=== PATIENT | male | born 1970 | race Caucasian/White ===

== ENCOUNTER 2018-11-17 03:38 | Emergency (ER) | payer SELFPAY ==
[2018-11-17] MEDS ORDERED: Metoclopramide IV* 5 MG/ML 2 ML VIAL IV SLOW PU ONE (04:18)
[2018-11-17] MEDS ORDERED: Ketorolac INJ* 30 MG/ML 1 ML VIAL IV PUSH ONE (04:18)
[2018-11-17] MEDS ORDERED: NS 0.9% 1000 ML** 1,000 ML IV ONE (04:18)
[2018-11-17 05:45] LABS: ABS Basophils 0.2 10^3/ul (0-0.2); ABS Eosinophils 0.3 10^3/ul (0-0.6); ABS Lymphocytes 1.3 10^3/ul (1.0-4.8); ABS Monocytes 1.1 10^3/ul (0-0.8); Eosinophil % 1.7 %; Hematocrit 39 % (42-52); Hemoglobin 13.4 g/dL (14.0-18.0); Lymphocyte % 8.7 %; Mean Corpuscular HGB Conc 35 g/dL (31-36); Mean Corpuscular Hemoglobin 31 pg (27-31); Mean Corpuscular Volume 90 fL (80-94); Mean Platelet Volume 10.5 fL (7.4-10.4); Nucleated Red Blood Cells % 0.1; Platelet Count 116 10^3/uL (150-450); Red Blood Count 4.31 10^6 /uL (4.18-5.48); Red Cell Distribution Width 15 % (10-15); White Blood Count 14.9 10^3/uL (3.5-10.8)
[2018-11-17 06:17] LABS: ALT 15 U/L (7-52); AST 15 U/L (13-39); Albumin 3.8 g/dL (3.2-5.2); Albumin/Globulin Ratio 1.6 (1-3); Alkaline Phosphatase 82 U/L (34-104); BUN/Creatinine Ratio 17.1 (8-20); Blood Urea Nitrogen 12 mg/dL (6-24); CO2 Carbon Dioxide 22 mmol/L (22-32); Calcium 8.9 mg/dL (8.6-10.3); EGFR Non-African American 119.9 (>60); Globulin 2.4 g/dL (2-4); Glucose 107 mg/dL (70-100); Magnesium 1.9 mg/dL (1.9-2.7); Potassium 3.7 mmol/L (3.5-5.0); Sodium 139 mmol/L (135-145); Total Protein 6.2 g/dL (6.4-8.9)
[2018-11-17 06:24] LABS: Anion Gap 5 mmol/L (2-11); Chloride 112 mmol/L (101-111)
[2018-11-17 06:29] LABS: Alcohol < 10 mg/dL (<10)
[2018-11-17 07:15] VITALS: BP 102/64
--- NOTE | 2018-11-17 08:16 | ED ---
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 He was working on a carpet and stood up suddenly, felt unsteady and dizzy, and fell down to the ground. He mentions drinking four beers four hours COLLAR BASTER JUMPBASTING. He reports headache, dizziness, and currently being in pain rated 8/10 in severity. He also notes a previous injury in his left shoulder and neck and suggests that his fall may have aggravated it, but denies hitting his head or any LOC. He takes medication for hypotension and headache at home. He is a heavy smoker and has Hx of EtOH abuse, back problems, and cocaine abuse. - History Of Current Complaint Chief Complaint: EDDizziness Stated Complaint: DIZZY PER EMS Time Seen by Provider: 11/17/18 04:06 Hx Obtained From: Patient Onset/Duration: Still Present Timing: Constant Severity Initially: Severe - 8/10 Severity Currently: Severe - 8/10 Character: Dizzy Associated Signs And Symptoms: Positive: Unsteady Gait, Other: - Positive - Headache, left shoulder and neck pain - Allergies/Home Medications Allergies/Adverse Reactions: Allergies Allergy/AdvReac Type Severity Reaction Status Date / Time No Known Allergies Allergy Verified 11/17/18 04:06 Home Medications: Home Medications Fludrocortisone Acetate TAB* 0.1 mg PO DAILY 11/17/18 [History Confirmed ] PMH/Surg Hx/FS Hx/Imm Hx Endocrine/Hematology History: Denies: Hx Diabetes Cardiovascular History: Denies: Hx Hypertension, Hx Pacemaker/ICD Musculoskeletal History: Reports: Hx Back Problems Sensory History: Denies: Hx Hearing Aid Psychiatric History: Reports: Other Psychiatric Issues/Disorders - recovering alcoholic Denies: Hx Panic Disorder - Surgical History Surgery Procedure, Year, and Place: EAR TUBES A CHILD. HERNIA A CHILD. 03/12 RT SHOULDER ARTHROSCOPIC DECOMPRESSION Infectious Disease History: No Infectious Disease History: Denies: Traveled Outside the [place] in Last 30 Days - Family History Known Family History: Negative: Cardiac Disease, Hypertension, Diabetes - Social History Alcohol Use: Daily Alcohol Amount: Pt reports having had beer COLLAR BASTER JUMPBASTING Substance Use Type: Reports: Cocaine Substance Use Comment - Amount & Last Used: used this date Smoking Status (MU): Heavy Every Day Tobacco Smoker Type: Cigarettes Amount Used/How Often: 1 PPD Have You Smoked in the Last Year: Yes Review of Systems Musculoskeletal: Other - positive - left shoulder and left neck Neurological: Other - Positive - Dizziness, Unsteadiness, Light-headedness Positive: Headache All Other Systems Reviewed And Are Negative: Yes Physical Exam - Summary Physical Exam Summary: VITAL SIGNS: Reviewed. GENERAL: Patient is a well-developed and nourished male who is lying comfortable in the stretcher. Patient is not in any acute respiratory distress. Alcohol odor detectable in breath. HEAD AND FACE: No signs of trauma. No ecchymosis, hematomas or skull depressions. No sinus tenderness. EYES: PERRLA, EOMI x 2, No injected conjunctiva, no nystagmus. EARS: Hearing grossly intact. Ear canals and tympanic membranes are within normal limits. MOUTH: Oropharynx within normal limits. NECK: Supple, trachea is midline, no adenopathy, no JVD, no carotid bruit, no c- spine tenderness, neck with full ROM CHEST: Symmetric, no tenderness at palpation LUNGS: Clear to auscultation bilaterally. No wheezing or crackles. CVS: Regular rate and rhythm, S1 and S2 present, no murmurs or gallops appreciated. ABDOMEN: Soft, non-tender. No signs of distention. No rebound no guarding, and no masses palpated. Bowel sounds are normal. EXTREMITIES: FROM in all major joints, no edema, no cyanosis or clubbing. NEURO: Alert and oriented x 3. No acute neurological deficits. Speech is normal and follows commands. SKIN: Dry and warm Triage Information Reviewed: Yes Vital Signs On Initial Exam: Initial Vitals Temp Pulse Resp BP Pulse Ox 99.0 F 100 16 130/80 97 11/17/18 03:45 11/17/18 03:45 11/17/18 03:45 11/17/18 03:45 11/17/18 03:45 Vital Signs Reviewed: Yes Diagnostics - Vital Signs Vital Signs Temp Pulse Resp BP Pulse Ox 11/17/18 07:00 98.4 F 85 16 102/64 96 11/17/18 06:58 83/59 11/17/18 06:57 84 86/57 96 11/17/18 06:56 83 89/54 96 11/17/18 06:31 12 116/73 11/17/18 06:01 13 123/65 11/17/18 06:00 13 11/17/18 05:31 99 13 125/76 95 11/17/18 05:01 102 13 122/77 100 11/17/18 04:31 99 16 129/78 94 11/17/18 04:02 100 18 132/78 96 11/17/18 04:01 101 18 96 11/17/18 03:45 99.0 F 100 16 130/80 97 - Laboratory Lab Results: Lab Results 11/17/18 11/17/18 Range/Units 05:28 05:28 WBC 14.9 H (3.5-10.8) 10^3/uL RBC 4.31 (4.18-5.48) 10^6 /uL Hgb 13.4 L (14.0-18.0) g/dL Hct 39 L (42-52) % MCV 90 (80-94) fL MCH 31 (27-31) pg MCHC 35 (31-36) g/dL RDW 15 (10-15) % Plt Count 116 L (150-450) 10^3/uL MPV 10.5 H (7.4-10.4) fL Neut % (Auto) 80.7 % Lymph % (Auto) 8.7 % [place] % (Auto) 7.7 % Eos % (Auto) 1.7 % Baso % (Auto) 1.2 % Absolute Neuts (auto) 12.0 H (1.5-7.7) 10^3/ul Absolute Lymphs (auto) 1.3 (1.0-4.8) 10^3/ul Absolute Monos (auto) 1.1 H (0-0.8) 10^3/ul Absolute Eos (auto) 0.3 (0-0.6) 10^3/ul Absolute Basos (auto) 0.2 (0-0.2) 10^3/ul Absolute Nucleated RBC 0.0 10^3/ul Nucleated RBC % 0.1 Sodium 139 (135-145) mmol/L Potassium 3.7 (3.5-5.0) mmol/L Chloride 112 H (101-111) mmol/L Carbon Dioxide 22 (22-32) mmol/L Anion Gap 5 (2-11) mmol/L BUN 12 (6-24) mg/dL Creatinine 0.70 (0.67-1.17) mg/dL Est GFR ( Amer) 145.0 (>60) Est GFR (Non-Af Amer) 119.9 (>60) BUN/Creatinine Ratio 17.1 (8-20) Glucose 107 H (70-100) mg/dL Calcium 8.9 (8.6-10.3) mg/dL Magnesium 1.9 (1.9-2.7) mg/dL Total Bilirubin 0.60 (0.2-1.0) mg/dL AST 15 (13-39) U/L ALT 15 (7-52) U/L Alkaline Phosphatase 82 (34-104) U/L Total Protein 6.2 L (6.4-8.9) g/dL Albumin 3.8 (3.2-5.2) g/dL Globulin 2.4 (2-4) g/dL Albumin/Globulin Ratio 1.6 (1-3) Serum Alcohol < 10 (<10) mg/dL Result Diagrams: 11/17/18 05:28 11/17/18 05:28 Lab Statement: Any lab studies that have been ordered have been reviewed, and results considered in the medical decision making process. - Radiology CXR Radiology Interpretation Completed By: ED Physician Summary of Radiographic Findings: No acute processes, pendign official report. - EKG EKG Cardiac Rate: NL - @ 99 BPM EKG Rhythm: Sinus Rhythm ST Segment: Normal Dizzy Course/Dx - Course Course Of Treatment: The pt is 48 year old male presenting to [facility] c/o dizziness, lightheadedness for the past 2 days, and for falling down 2 hours COLLAR BASTER JUMPBASTING. He reports headache, dizziness, and currently being in pain rated 8/10 in severity. He also notes a previous injury in his shoulder and neck and suggests that his fall may have aggravated it, but denies hitting his head or any LOC. He takes medication for hypotension and headache at home. He is a heavy smoker and has Hx of EtOH abuse recovery, back problems, and cocaine abuse. An EKG reveals normal sinus rhythm @ 99 BPM and normal axis. CXR reveals no acute processes. Test results with no significant abnormalities except for WBC @ 14.9 , Hgb @ 13.4, Hct @ 39, Plt Count @ 116, MPV @ 10.5, Absolute Neuts @ 12.0, Absolute Monos @ 1.1, Chloride @ 112, Glucose @ 107, and Total protein @ 6.2. In the ED course the patient was given 15 mg Toradol IV, 10 mg Reglan IV, and 1000 mls Ns @ 1000 mls/hr IV. Patient was discharged to home and advised to follow up with PCP within 3 days. Pt is agreeable with this plan. - Diagnoses Provider Diagnoses: Dizziness Discharge - Sign-Out/Discharge Documenting (check all that apply): Patient Departure - Discharged Patient Received Moderate/Deep Sedation with Procedure: No - Discharge Plan Condition: Stable Disposition: HOME Patient Education Materials: Dizziness (ED) Referrals: [facility] [Outside] - 3 Days Additional Instructions: RETURN TO ED FOR ANY NEW OR WORSENING SYMPTOMS. FOLLOW UP WITH YOUR PRIMARY CARE PHYSICIAN WITHIN THREE DAYS. - Attestation Statements Document Initiated by Scribe: Yes Documenting Scribe: OTONIEL BRONSON Provider For Whom Georgie is Documenting (Include Credential): HARSH SAMANO MD Scribe Attestation: IOTONIEL, scribed for HARSH SAMANO MD on 11/17/18 at 0855. Status of Scribe Document: Ready
== END 2018-11-17 07:15 | disposition home or self-care (01) ==
LOC: ED 03:38
DX: R42 Dizziness and giddiness (principal); R51 Headache; M54.2 Cervicalgia; M25.512 Pain in left shoulder; R26.81 Unsteadiness on feet; F17.210 Nicotine dependence, cigarettes, uncomplicated
CPT/HCPCS: 36415; 71045; 80053; 80320; 83735; 85025; 93005; 96361; 96374; 96375; 99284; G0480; J1885; J2765

== ENCOUNTER 2019-06-22 01:19 | Inpatient (IN) | payer MEDICAID ==
[2019-06-22] MEDS ORDERED: Charcoal ACTIVATED* 25 GM/120 ML BTL PO ONE (01:34)
[2019-06-22] MEDS ORDERED: NS 0.9% 1000 ML** 1,000 ML IV ONE ×2 (01:40→04:01)
--- NOTE | 2019-06-22 01:41 | ED ---
Substance Abuse/Use - HPI Summary HPI Summary: This patient is a 49 year old male brought in on a 941 presenting to [facility] with a chief complaint of drug overdose. He states he took 40-50 tablets of Tylenol and Flexeril 1.5 hours ago. The patient states he took the pills because he thought it was the "right" thing to do. Patient is a level 5 caveat due to altered mental status. - History Of Current Complaint Chief Complaint: EDOverdose Stated Complaint: 941 PER POLICE Hx Obtained From: Patient Ingestion History: Type/Name Of Drug - Tylenol and Flexeril, Approximate Time Of Ingestion - 0000 Overdose Characteristics: Oral - Allergies/Home Medications Allergies/Adverse Reactions: Allergies Allergy/AdvReac Type Severity Reaction Status Date / Time No Known Allergies Allergy Verified 06/22/19 01:24 Home Medications: Home Medications Unobtainable 06/22/19 [History Confirmed 06/22/19] PMH/Surg Hx/FS Hx/Imm Hx Endocrine/Hematology History: Denies: Hx Diabetes Cardiovascular History: Denies: Hx Hypertension, Hx Pacemaker/ICD Musculoskeletal History: Reports: Hx Back Problems Sensory History: Denies: Hx Hearing Aid Psychiatric History: Reports: Other Psychiatric Issues/Disorders - recovering alcoholic Denies: Hx Panic Disorder - Surgical History Surgery Procedure, Year, and Place: EAR TUBES A CHILD. HERNIA A CHILD. 03/12 RT SHOULDER ARTHROSCOPIC DECOMPRESSION Infectious Disease History: No Infectious Disease History: Denies: Traveled Outside the [place] in Last 30 Days - Family History Known Family History: Negative: Cardiac Disease, Hypertension, Diabetes - Social History Alcohol Use: Daily Alcohol Amount: Pt reports having had beer [employer]INE[employer] Substance Use Type: Reports: Cocaine Substance Use Comment - Amount & Last Used: used this date Smoking Status (MU): Heavy Every Day Tobacco Smoker Type: Cigarettes Amount Used/How Often: 1 PPD Have You Smoked in the Last Year: Yes - Additional Comments History Additional Comments: Level 5 caveat due to AMS Review of Systems Neurological/Mental Status: Other - Altered mental status Psychological: Other - Suicide attempt All Other Systems Reviewed And Are Negative: No - Comments Additional Review of Systems Comments: ROS is level 5 caveat due to AMS Physical Exam - Summary Physical Exam Summary: Appearance: Somnolent-appearing male Skin: Warm, dry, no obvious rash Eyes: sclera anicteric, no conjunctival pallor ENT: mucous membranes moist Neck: deferred Respiratory: No signs of respiratory distress Cardiovascular: Appears well perfused, pulses are nml Abdomen: deferred Musculoskeletal: Moving all 4 extremities without obvious discomfort Neurological: Awake and alert, mentation is normal, speech is fluent and appropriate Psychiatric: affect is flat, does not elaborate much, does not appear to be responding to internal stimuli. Triage Information Reviewed: Yes Vital Signs On Initial Exam: Initial Vitals Temp Pulse Resp BP Pulse Ox 97.6 F 105 14 101/62 97 06/22/19 01:22 06/22/19 01:22 06/22/19 01:22 06/22/19 01:22 06/22/19 01:22 Vital Signs Reviewed: Yes Procedures - Sedation Patient Received Moderate/Deep Sedation with Procedure: No Diagnostics - Vital Signs Vital Signs Temp Pulse Resp BP Pulse Ox 06/22/19 01:22 97.6 F 105 14 101/62 97 - Laboratory Result Diagrams: 06/22/19 01:47 06/22/19 01:47 Lab Statement: Any lab studies that have been ordered have been reviewed, and results considered in the medical decision making process. - EKG 0136 Cardiac Rate: NL - 92 BPM EKG Rhythm: Sinus Rhythm Summary of EKG Findings: NSR at 92 BPM, P waves, QRS complex, and T waves are within normal limits, T waves and intervals are normal, no ischemic changes. This is a normal EKG. ED Physician has reviewed and intepreted this EKG. Course/Dx - Course Course Of Treatment: This patient is a 49 year old male brought in on a 941 presenting to [facility] with a chief complaint of drug overdose. Poison control recommended activated charcoal but concluded patient's mental status prevented safe administration. Labs reveal Plt count 148 L, Acetaminphen 169 H, Urine Cocaine Presumptive positive A , and Serum Alcohol 114 H. Patient will be admitted for observation. Dr. Monreal, Hospitalist, accepted the patient for admission. Plan was discussed with the patient and he was agreeable with this plan. - Diagnoses Provider Diagnoses: Acetaminophen overdose Discharge ED - Sign-Out/Discharge Documenting (check all that apply): Patient Departure - Admission - Discharge Plan Condition: Stable Disposition: ADMITTED TO [facility] - Billing Disposition and Condition Condition: STABLE Disposition: Admitted to [facility] - Attestation Statements Document Initiated by Scribe: Yes Documenting Scribe: Bertrand Salazar Provider For Whom Scribe is Documenting (Include Credential): Vikram De Leon MD Scribe Attestation: I, Bertrand Salazar, scribed for Vikram De Leon MD on 06/23/19 at 0030. Scribe Documentation Reviewed: Yes Provider Attestation: The documentation as recorded by the scribe, Bertrand Salazar accurately reflects the service I personally performed and the decisions made by me, Vikram De Leon MD Status of Scribe Document: Viewed
[2019-06-22 02:05] LABS: Hematocrit 42 % (42-52); Hemoglobin 14.6 g/dL (14.0-18.0); Mean Corpuscular HGB Conc 35 g/dL (31-36); Mean Corpuscular Hemoglobin 31 pg (27-31); Mean Corpuscular Volume 89 fL (80-94); Red Blood Count 4.66 10^6 /uL (4.18-5.48); Red Cell Distribution Width 14 % (10-15); White Blood Count 4.9 10^3/uL (3.5-10.8)
[2019-06-22 02:06] LABS: ABS Basophils 0.1 10^3/ul (0-0.2); ABS Eosinophils 0.2 10^3/ul (0-0.6); ABS Lymphocytes 1.9 10^3/ul (1.0-4.8); ABS Monocytes 0.5 10^3/ul (0-0.8); ABS Neutrophils 2.3 10^3/ul (1.5-7.7); Eosinophil % 3.5 %; Nucleated Red Blood Cells % 0.1
[2019-06-22 02:09] LABS: ALT 16 U/L (7-52); AST 17 U/L (13-39); Albumin 4.4 g/dL (3.2-5.2); Albumin/Globulin Ratio 1.6 (1-3); Alkaline Phosphatase 84 U/L (34-104); Anion Gap 8 mmol/L (2-11); BUN/Creatinine Ratio 16.9 (8-20); Blood Urea Nitrogen 13 mg/dL (6-24); CO2 Carbon Dioxide 22 mmol/L (22-32); Calcium 9.1 mg/dL (8.6-10.3); Chloride 108 mmol/L (101-111); EGFR African American 129.4 (>60); EGFR Non-African American 106.9 (>60); Globulin 2.7 g/dL (2-4); Glucose 93 mg/dL (70-100); Potassium 3.5 mmol/L (3.5-5.0); Sodium 138 mmol/L (135-145); Total Protein 7.1 g/dL (6.4-8.9)
[2019-06-22 02:33] LABS: Alcohol 114 mg/dL (<10); Salicylate < 2.50 mg/dL (<30)
[2019-06-22 02:42] LABS: Acetaminophen 163 mcg/mL
[2019-06-22 02:48] LABS: TSH (Thyroid Stimulating Horm) 2.82 mcIU/mL (0.34-5.60)
[2019-06-22 03:11] LABS: Mean Platelet Volume 10.2 fL (7.4-10.4); Platelet Count 148 10^3/uL (150-450)
[2019-06-22] MEDS ORDERED: ACETYLCYSTEINE IV ONE ×4 (05:20→12:00)
[2019-06-22] MEDS ORDERED: D5W IV ONE ×4 (05:20→12:00)
[2019-06-22] MEDS ORDERED: Ondansetron INJ* 2 MG/ML VIAL IV PRN (05:56)
[2019-06-22] MEDS ORDERED: NS 0.9% 1000 ML** 1,000 ML IV SCH (06:00)
[2019-06-22 06:09] LABS: Urine Appearance Clear; Urine Bilirubin Negative (Negative); Urine Blood Negative (Negative); Urine Color Yellow; Urine Glucose Negative (Negative); Urine Ketones Negative (Negative); Urine Nitrite Negative (Negative); Urine Protein Negative (Negative); Urine Specific Gravity 1.018 (1.010-1.030); Urine Urobilinogen Negative (Negative)
[2019-06-22 06:20] LABS: Urine Benzodiazepine Screen None Detected (None Detect); Urine Opiates Screen None Detected (None Detect)
--- NOTE | 2019-06-22 06:47 | HP ---
History of Present Illness - History of Present Illness Reason for Visit: Drug overdose, Suicidal ideation History of Present Illness: 49 yo Male with PMHx significant for Substance abuse, Alcohol dependence and remote history of Low BP presented brought in today with Tylenol and Flexeril overdose. Patient said to have ingested about 30-40 tablets of Tylenol and Flexeril each around midnight. He said he thought it was the right thing to do. He reported he needed a nap and it seems like the right thing to do was to ingest such amount of medication. He said his intention wasn't to harm or hurt himself but to just take a nap. He denied intention to hurt others. Denied fever, headache, SOB, chest pain, double vision. 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 Alcohol: Heavy - 3-4 beers daily Drugs: Cocaine - last use, last night Lives: Other - , has 2 kids, 26 yo son and 24 yo daughter Review of Systems - Measurements Intake and Output: Intake and Output Last 24 Hours 06/19/19 06/20/19 06/21/19 06/22/19 06:59 06:59 06:59 06:59 Intake Total 1000 Balance 1000 Weight 70.307 kg Intake: IV Fluids 1000 - Review of Systems Constitutional Symptoms: Positive: Fatigue Dermatology: Positive: Normal HEENT: Positive: Normal Eyes: Positive: Normal Thyroid: Positive: Normal Pulmonary: Positive: Normal Cardiology: Negative: Chest Pain, Shortness of Breath, Palpitations, Edema, Faintness, Syncope Gastroenterology: Negative: Abdominal Pain, Nausea, Vomiting, Anorexia, Diarrhea, Haematemesis Genital - Urinary: Negative: Dysuria, Hematuria Genitourinary - Male: Negative: Erectile Dysfunction Musculoskeletal: Negative: Joint Pain Endocrinology: Positive: Normal Hematologic/Lymphatic: Negative: Anemia Neurology: Negative: Headache, Migraines, Diplopia, Dizziness, Change in Speech Psychiatry: Positive: Depressed Mood, Suicidal Ideation Negative: Unusual Fatigue, Eating Disorders Allergic/Immunologic: Negative: Hx Angioedema, Hx HIV Objective Active Medications: Docusate Sodium (Colace Cap*) 100 mg PO BID [facility] Acetylcysteine 3,500 mg/ (Dextrose) 517.5 mls @ 129.375 mls/hr IV ONCE ONE; Protocol Stop: 06/22/19 09:59 Sodium Chloride (Ns 0.9% 1000 Ml) 1,000 mls @ 125 mls/hr IV PER RATE [facility] Stop: 06/22/19 13:59 Ondansetron HCl (Zofran Inj*) 4 mg IV Q4H PRN PRN Reason: NAUSEA/VOMITING Vital Signs - 8 hr 06/22/19 06/22/19 06/22/19 01:22 01:59 02:00 Temperature 97.6 F Pulse Rate 105 90 91 Respiratory 14 16 13 Rate Blood Pressure 101/62 90/50 (mmHg) O2 Sat by Pulse 97 94 92 Oximetry 06/22/19 06/22/19 06/22/19 02:07 02:37 03:00 Temperature Pulse Rate 90 86 80 Respiratory 12 13 13 Rate Blood Pressure 88/52 (mmHg) O2 Sat by Pulse 94 94 95 Oximetry 06/22/19 06/22/19 06/22/19 03:02 03:07 03:37 Temperature Pulse Rate 82 81 80 Respiratory 11 12 15 Rate Blood Pressure 84/48 87/46 (mmHg) O2 Sat by Pulse 94 95 97 Oximetry 06/22/19 06/22/19 06/22/19 03:38 03:57 04:00 Temperature Pulse Rate 76 74 74 Respiratory 12 16 11 Rate Blood Pressure 80/52 75/45 (mmHg) O2 Sat by Pulse 96 97 97 Oximetry 06/22/19 06/22/19 06/22/19 04:07 04:37 04:41 Temperature Pulse Rate 72 73 76 Respiratory 11 12 19 Rate Blood Pressure 79/45 75/46 84/56 (mmHg) O2 Sat by Pulse 97 97 98 Oximetry 06/22/19 06/22/19 06/22/19 05:00 05:07 05:37 Temperature Pulse Rate 71 79 71 Respiratory 12 18 11 Rate Blood Pressure 84/46 78/54 (mmHg) O2 Sat by Pulse 95 98 98 Oximetry 06/22/19 06/22/19 06/22/19 06:00 06:07 06:41 Temperature 98.7 F Pulse Rate 72 69 70 Respiratory 14 13 18 Rate Blood Pressure 81/47 78/78 (mmHg) O2 Sat by Pulse 98 98 97 Oximetry Appearance: Weak, obtunded, drowsy, sleepy Eyes: No Scleral Icterus Ears/Nose/Mouth/Throat: NL Teeth, Lips, Gums, Clear Oropharnyx Neck: NL Appearance and Movements; NL JVP, Trachea Midline, No Thyroid Enlargement, Masses Respiratory: Symmetrical Chest Expansion and Respiratory Effort, Clear to Auscultation, Clear to Percussion, Clear to Palpation Cardiovascular: NL Sounds; No Murmurs; No JVD, RRR, No Edema Abdominal: NL Sounds; No Tenderness; No Distention, No Hepatosplenomegaly Lymphatic: No Cervical Adenopathy Extremities: No Edema, No Clubbing, Cyanosis Skin: No Rash or Ulcers Neurological: - - Awake, sleepy, oriented X 3 Result Diagrams: 06/22/19 01:47 06/22/19 01:47 Assess/Plan/Problems-Billing Assessment: 49 yo male with PMHx significant for Substance abuse, Alcohol abuse, low BP on Fludrocortisone but stopped taking his meds presented with Tylenol/ Flexeril overdose and suicidal ideation - Patient Problems (1) Drug overdose, intentional Current Visit: Yes Status: Acute Code(s): T50.902A - POISONING BY UNSP DRUG/ MEDS/BIOL SUBST, SELF-HARM, INIT SNOMED Code(s): 60408292 Comment: Per poison control, patient started on Acetyl cysteine 10,500 mg IVPB over an hour then 3500 mg over 4 hours. Aspiration precaution. IV fluid resuscitation 1:1 monitor for suicidal ideation FU blood work. (2) Drug overdose, multiple drugs Current Visit: Yes Status: Acute Code(s): T50.911A - POISONING BY MULTIPLE UNSP DRUG/MEDS/BIOL SUBST, ACC, INIT SNOMED Code(s): 15001804 Comment: As above (3) Suicidal ideation Current Visit: Yes Status: Acute Code(s): R45.851 - SUICIDAL IDEATIONS SNOMED Code(s): 4069425 Comment: Psychiatry consult 1:1 suicide watch until evaluated by Psych. (4) Low BP Current Visit: Yes Status: Acute Comment: Patient originally on Fludrocortisone. To continue and monitor BP c/w IV fluid resuscitation until can tolerate PO. (5) Low BP Current Visit: Yes Status: Acute (6) Full code status Current Visit: Yes Status: Acute Code(s): Z78.9 - OTHER SPECIFIED HEALTH STATUS SNOMED Code(s): 855853665 (7) DVT prophylaxis Current Visit: Yes Status: Acute Code(s): Z29.9 - ENCOUNTER FOR PROPHYLACTIC MEASURES, UNSPECIFIED SNOMED Code(s): 053409908 Comment: Andrey
[2019-06-22] MEDS ORDERED: Lorazepam PYXIS KEY ONE (08:01)
[2019-06-22] MEDS ORDERED: LORazepam INJ* 2 MG/ML 1 ML VIAL IV PUSH PRN (08:01)
[2019-06-22] MEDS ORDERED: Lorazepam PYXIS KEY PRN (08:01)
[2019-06-22] MEDS ORDERED: LORazepam INJ* 2 MG/ML 1 ML VIAL ONE (08:02)
[2019-06-22] MEDS ORDERED: Docusate CAP* 100 MG PO SCH (09:00)
[2019-06-22] MEDS: Lactated Ringers 1000 ML Bag* 1,000 ML IV ONE ×2 (11:02→16:12)
--- NOTE | 2019-06-22 14:50 | PN ---
Date of Service: 06/22/19 Critical Care Services: Patient admitted last night with acetaminophen OD as suicide gesture. Is also positive for cocaine on tox screen, and blood ETOH level is elevated (114). Is Currently on IV N-acetrylcysteine. Vital Signs: Temp Pulse Resp BP SpO2 FiO2 98 F 75 11 87/55 96 Physical Exam: Gen:Somnolent but arousable HEENT: Pupils midposition and reactive. No jaundice Lungs:Clear Cardiac: reg rhythm Abdomen:Not distended Extremities:No cyanosis or edema Neuro:No focal deficits Fluid Balance (Past 24 Hours): 06/22/19 06:59 Intake Total 1000 Output Total Balance 1000 Weight 155 lb Intake: IV Fluids 1000 Oral Output: Urine Other: # Bowel Movements Labs: Laboratory Results - last 24 hr 06/22/19 06/22/19 06/22/19 01:47 01:47 03:59 WBC 4.9 RBC 4.66 Hgb 14.6 Hct 42 MCV 89 MCH 31 MCHC 35 RDW 14 Plt Count 148 L MPV 10.2 Neut % (Auto) 46.7 Lymph % (Auto) 38.0 [place] % (Auto) 10.6 Eos % (Auto) 3.5 Baso % (Auto) 1.2 Absolute Neuts (auto) 2.3 Absolute Lymphs (auto) 1.9 Absolute Monos (auto) 0.5 Absolute Eos (auto) 0.2 Absolute Basos (auto) 0.1 Absolute Nucleated RBC 0.0 Nucleated RBC % 0.1 Sodium 138 Potassium 3.5 Chloride 108 Carbon Dioxide 22 Anion Gap 8 BUN 13 Creatinine 0.77 Est GFR ( Amer) 129.4 Est GFR (Non-Af Amer) 106.9 BUN/Creatinine Ratio 16.9 Glucose 93 Calcium 9.1 Total Bilirubin 0.90 AST 17 ALT 16 Alkaline Phosphatase 84 Total Protein 7.1 Albumin 4.4 Globulin 2.7 Albumin/Globulin Ratio 1.6 TSH 2.82 Urine Color Urine Appearance Urine pH Ur Specific [place] Urine Protein Urine Ketones Urine Blood Urine Nitrate Urine Bilirubin Urine Urobilinogen Ur Leukocyte Esterase Urine Glucose Salicylates < 2.50 Urine Opiates Screen Acetaminophen 163 H* 169 H* Ur Barbiturates Screen Ur Phencyclidine Scrn Ur Amphetamines Screen U Benzodiazepines Scrn Urine Cocaine Screen U Cannabinoids Screen Serum Alcohol 114 H 06/22/19 06/22/19 05:51 05:51 WBC RBC Hgb Hct MCV MCH MCHC RDW Plt Count MPV Neut % (Auto) Lymph % (Auto) [place] % (Auto) Eos % (Auto) Baso % (Auto) Absolute Neuts (auto) Absolute Lymphs (auto) Absolute Monos (auto) Absolute Eos (auto) Absolute Basos (auto) Absolute Nucleated RBC Nucleated RBC % Sodium Potassium Chloride Carbon Dioxide Anion Gap BUN Creatinine Est GFR ( Amer) Est GFR (Non-Af Amer) BUN/Creatinine Ratio Glucose Calcium Total Bilirubin AST ALT Alkaline Phosphatase Total Protein Albumin Globulin Albumin/Globulin Ratio TSH Urine Color Yellow Urine Appearance Clear Urine pH 5.0 Ur Specific [place] 1.018 Urine Protein Negative Urine Ketones Negative Urine Blood Negative Urine Nitrate Negative Urine Bilirubin Negative Urine Urobilinogen Negative Ur Leukocyte Esterase Negative Urine Glucose Negative Salicylates Urine Opiates Screen None detected Acetaminophen Ur Barbiturates Screen None detected Ur Phencyclidine Scrn None detected Ur Amphetamines Screen None detected U Benzodiazepines Scrn None detected Urine Cocaine Screen Presumptive positive A U Cannabinoids Screen None detected Serum Alcohol Studies: None today Nutrition: No intake today Impression: Acetaminophen OD with probable polypharmacy abuse. Plan: 1. Continue antidote Rx with N-acetylcysteine 2. recheck acetaminophen level at end of antidote Rx 3. Monitor liver enzymes, bilirubin, etc. 4. When clinically stable, will consult psychiatry Critical Care Time: 35 minutes
[2019-06-23] MEDS ORDERED: NS 0.9% 500 ML* 500 ML IV ONE (02:05)
[2019-06-23 06:05] LABS: ABS Eosinophils 0.2 10^3/ul (0-0.6); ABS Lymphocytes 1.7 10^3/ul (1.0-4.8); ABS Monocytes 0.5 10^3/ul (0-0.8); ABS Neutrophils 3.7 10^3/ul (1.5-7.7); Eosinophil % 3.8 %; Hematocrit 38 % (42-52); Hemoglobin 13.4 g/dL (14.0-18.0); Lymphocyte % 27.8 %; Mean Corpuscular HGB Conc 35 g/dL (31-36); Mean Corpuscular Hemoglobin 31 pg (27-31); Mean Corpuscular Volume 89 fL (80-94); Nucleated Red Blood Cells % 0.1; Red Blood Count 4.28 10^6 /uL (4.18-5.48); Red Cell Distribution Width 14 % (10-15); White Blood Count 6.2 10^3/uL (3.5-10.8)
[2019-06-23 06:13] LABS: ALT 10 U/L (7-52); AST 11 U/L (13-39); Albumin 3.2 g/dL (3.2-5.2); Albumin/Globulin Ratio 1.5 (1-3); Alkaline Phosphatase 65 U/L (34-104); Anion Gap 4 mmol/L (2-11); BUN/Creatinine Ratio 16.9 (8-20); Blood Urea Nitrogen 12 mg/dL (6-24); CO2 Carbon Dioxide 24 mmol/L (22-32); Calcium 8.4 mg/dL (8.6-10.3); Chloride 111 mmol/L (101-111); EGFR African American 142.1 (>60); EGFR Non-African American 117.4 (>60); Globulin 2.2 g/dL (2-4); Glucose 124 mg/dL (70-100); Potassium 3.3 mmol/L (3.5-5.0); Sodium 139 mmol/L (135-145); Total Protein 5.4 g/dL (6.4-8.9)
[2019-06-23 06:35] LABS: Acetaminophen < 15 mcg/mL
[2019-06-23 06:51] LABS: Platelet Count Platelets clumped. 10^3/uL (150-450)
--- NOTE | 2019-06-23 12:56 | DS ---
DISCHARGE SUMMARY: DATE OF ADMISSION: 06/22/19 DATE OF DISCHARGE: 06/23/19 HISTORY: This patient is a 49-year-old white male who was admitted following ingestion of acetaminophen and Flexeril as a suicide attempt, which was documented by a note the patient left to his father. The patient ingested approximately 40 tablets of acetaminophen of unknown strength and at a level of 163 on admission, in addition to a serum alcohol level of 114 and a tox screen that was positive for cocaine. The patient was started on intravenous N- acetylcysteine and completed the protocol for antidote therapy with IV acetylcysteine. Today, the acetaminophen level is less than 15. The patient is alert and oriented. There are no abnormalities in liver enzymes or bilirubin. The patient also had a corrected QT interval greater than 500 msec that was believed to be due to Flexeril that the patient also ingested along with the acetaminophen. The repeat cardiogram today shows a corrected QT interval of 400 msec. The patient was seen by the psychiatry service and the plan is to admit the patient to the Behavioral Health Unit here. He is medically cleared for this admission. FINAL DISCHARGE DIAGNOSIS: Acetaminophen overdose as a suicide gesture. MANAGEMENT PLAN: The patient to be admitted to the Behavioral Health Unit at [facility]. [id number]/[facility] #: [id number] MTDD
--- NOTE | 2019-06-23 13:53 | HP ---
HISTORY AND PHYSICAL: DATE OF ADMISSION: 06/22/19 IDENTIFYING DATA: Dar is a 49-year-old male with extensive history of polysubstance dependence, who was brought to the emergency room following an intentional overdose on 30 to 40 tablets of Tylenol and Flexeril. He was admitted to ICU and we received a request for consult. The patient at this time appears to be severely depressed and continues to be suicidal and we are going to bring him down to the Behavioral Science Unit for further evaluation and treatment of his mental health situation. CHIEF COMPLAINT: "I took all those pills to end it all and not wake up again." HISTORY OF PRESENT ILLNESS: This 49-year-old gentleman with no prior history of mental health treatments, has been in and out of correction and senior living for several years now, has been staying with his uncle since he got out of formerly [facility]. He was minimally cooperative with providing history and was getting irritable and upset with questions regarding his mental health as well as substance abuse; however, he gave enough of information to understand that he suffers from severe depression and would probably end his life if he is let go home without mental health treatment. However, he also will need assistance with his polysubstance use disorder. On today's evaluation, he reported that he has been depressed for a quite a while with sadness, occasional crying spells, feeling helpless, worthless, and thinking about ending his life. He did not report of any psychotic symptoms and was getting very upset when asked about his substance abuse history. 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 Moreover, because of his criminal history, it will be very difficult for him to get into any kind of employment, so he is penniless, in a way homeless without any psychosocial support system around him. All these factors stresses him out to a point that he does not see any purpose of living any longer. On top of it his only son, who is 26 years old, is in correction and his 24-year-old daughter, who has substance abuse problems is in a drug and alcohol rehab program in [place]. For some other reason, he is not allowed to have access to his grandchildren and in his opinion, his ex- is another reason that he is so angry all that time. PAST PSYCHIATRIC HISTORY: As mentioned earlier, there is no significant history of mental health treatment. There was a time possibly in 2012, he saw a counselor for briefly, but never saw a psychiatrist or taken any psychotropic medications. This is his first lifetime psychiatric hospitalization. PAST MEDICAL HISTORY: He suffers from chronic hypotension. He had right shoulder arthroscopic decompression and tonsillectomy in the past; otherwise, he appears to be physically healthy. During this admission, his QTc prolongation was more than [address] Akhtar would check it out before his transfer to Behavioral Science Unit. He might even repeat the EKG. Otherwise, his Tylenol level at this time is less than 15, and he was medically cleared to be transferred or discharged. FAMILY PSYCHIATRIC HISTORY: Unknown. However family medical history is significant for his mother having lung and kidney cancer and dad with bladder cancer. SUBSTANCE ABUSE HISTORY: As mentioned earlier, he gets severely irritable when asking about his drinking or drug usage, but from collateral it is known that he drinks somewhere between 3 to 16 beers a day, which is less than what he used to drink in the past, according to him that he was drinking somewhere between 30 to 36 beers a day. He also occasionally uses cocaine. The last use was last night. PERSONAL AND SOCIAL HISTORY: This 49-year-old gentleman who currently lives with his uncle, receives food stamps. He is unemployed and homeless, , has a son who is 26 years old who is in correction, and a 24-year-old daughter who is in a drug and alcohol rehab placed in [place]. He is unwilling to provide any further details about his psychosocial history. PHYSICAL EXAMINATION GENERAL: Dar is still in ICU. I reviewed the recent history and physical and it is unremarkable and he appears to be stable enough to come to behavioral science unit. VITAL SIGNS: Most recent vital signs are also unremarkable except for fluctuating blood pressures, which is on the lower side. At this time, he is not in any physical distress. MENTAL STATUS EXAMINATION: Dar appears to be a well built, healthy- appearing male with shortcut hair. His personal hygiene and grooming appears to be [id number]. He is alert and oriented to time, place, and person. Makes poor eye contact. His speech is normal in all spheres. He gets easily irritable. Describes his mood as "bad." Observed affect is dysphoria and irritable. Thought processes are logical and goal directed. Thought content is devoid of any delusions or paranoia, but he continues to be suicidal , but would not give any plan. His intelligence appears to be average as evidenced by his vocabulary and fund of knowledge. Memory functions are intact in all spheres. Insight and judgment are both impaired. SUMMARY: This 49-year-old male with lifelong history of alcohol dependance plus cocaine use disorder, who is currently admitted to ICU following an intensional overdose on 30 to 40 Tylenol and Flexeril. He continues to be suicidal and needs inpatient care on behavioral science unit for his protection and stabilization of severe depression. DIAGNOSTIC IMPRESSION: MENTAL HEALTH DIAGNOSES: 1. Unspecified mood disorder. 2. Rule out major depressive disorder. 3. Rule out bipolar disorder. 4. Alcohol use disorder. 5. Rule out alcohol-induced mood disorder. 6. Cocaine use disorder. 7. Rule out cocaine-induced mood disorder. PHYSICAL HEALTH DIAGNOSIS: 1. Status post overdose on Tylenol and Flexeril. 2. Chronic hypotension. TREATMENT RECOMMENDATIONS: Dar will remain hospitalized on behavioral science unit for his protection and stabilization. At this time according to Dr. Akhtar, he is medically cleared. His code status will remain full. Supportive, individual, and group therapy will be initiated. At this time, I will defer any psychopharmacological treatment to his assigned psychiatrist on the unit. [id number]/[facility] #: [id number] MTDShanika
[2019-06-23] MEDS ORDERED: Ondansetron TAB* 4 MG PO PRN (17:40)
[2019-06-23] MEDS ORDERED: Nicotine* 2MG (FRUIT FLAVOR) GUM PO PRN (17:41)
[2019-06-23] MEDS ORDERED: Al Hydrox/Mg Hydrox/Simet LIQ* 30 ML UDC PO PRN (17:41)
[2019-06-23] MEDS ORDERED: LORazepam PO 0-6 for WAM protocol PO SCH (18:00)
[2019-06-23] MEDS: Nicotine Patch Removal NOTE PATCH OFF SCH (20:16)
[2019-06-24] MEDS ORDERED: Influenza VAC *QUAD* 2019-20* 0.5 ML SYRINGE IM ONE (09:00)
[2019-06-24] MEDS: Nicotine PATCH 21 MG/24 HR* PATCH TRANSDERM SCH (11:21)
--- NOTE | 2019-06-24 11:23 | PN ---
BSU: Group Therapy Note - Service Type Service Type: 86070 Group Psychotherapy - Cognitive Behavioral Group Therapy ( CBT):Patient was attentive and participatory in CBT programming this morning, and remained in good behavioral control. Patient expressed positive insights regarding relevant treatment interventions and goals.
[2019-06-24] MEDS: Vitamin THERAPEUTIC TAB PO SCH (14:11)
[2019-06-24] MEDS ORDERED: Ibuprofen TAB* 600 MG PO PRN (14:39)
[2019-06-24] MEDS ORDERED: hydrOXYzine HCL TAB* 50 MG PO PRN (14:39)
--- NOTE | 2019-06-24 14:51 | PN ---
Subjective - Subjective Date of Service: 06/24/19 Service Type: 86999 Hosp care 25 min moderate complexity Subjective: Patient is pleasant upon approach. He reports desire to be on voluntary status , citing that he wants treatment. He states he is also concerned that an involuntary admission may sabotage visitation or guardianship of his grandchildren. Regarding symptoms, patient reports severe PTSD and anxiety with racing thoughts as barriers to being functional. He states he has poor sleep due to racing thoughts and M/S pain from work-related injuries. He reports "I' ll try anything" in regards to medications for above. He denies alcohol w/d effects and states he was drinking minimally. He states he has a past of alcoholic drinking. In 2013, he was charged with DUI and went to [facility] in [facility] for 7 months. Objective - General Observations Appearance: Unkempt Stature: Thin Posture: WNL Eye Contact: Average Behavior/Activity: WNL - Interaction Observations Attitude Towards Examiner: Cooperative Stated Mood: Euthymic Affect: Restricted Speech Pattern/Tone: Clear, Appropriate, Normal Volume Thought Process: Circumstantial, Racing Thought Content: WNL Hallucination Type: Denies Delusion Type: Denies - Cognitive Function Orientation: A&O x 4 Level of Consciousness: Alert Cognition: WNL Estimated Intelligence: Normal Insight: Mostly Blames Others for Problems Judgment Within Normal Limits: No Ability to Make Reasonable Decisions: Moderately Impaired - Medication Compliance Cooperative with Inpatient Medication Regimen: Yes - Group Participation Participates in Group Activities: Yes Assessment - Assessment Merits Inpatient Hospitalization: For Immediate Safety, For Stabilization Inpatient DSM-V Dx: F34.9 Clinical Impression: 49yo wm, tenuously domiciled, unemployed who presented to the ED after intentionally ingesting tylenol and flexeril in a suicide attempt. He minimizes substance use; toxicology was positive for alcohol and cocaine. Patient merits hospitalization for immediate safety and stabilization. Plan - Plan Treatment Plan: Name: SAMI KELLER JR Birthdate: 1970 [id number] continue acute intensive psychiatric treatment. convert to voluntary status. DC WAM. Start duloxetine for PTSD and m/s pain. may utilize ibuprofen and lidocaine patch prn pain. obtain collateral from family. discharge to include referrals for MH and SINDHU treatment. Continued Medication Management: Start Medication Medications: Current Medications Al Hydrox/Mg Hydrox/Simethicone (Maalox Plus*) 30 ml PO Q4H PRN PRN Reason: INDIGESTION Duloxetine HCl (Cymbalta Cap*) 30 mg PO DAILY [facility] Hydroxyzine HCl (Atarax Tab*) 50 mg PO Q4H PRN PRN Reason: anxiety Ibuprofen (Motrin Tab*) 600 mg PO Q8H PRN PRN Reason: PAIN - MILD Lidocaine (Lidoderm 5% Patch*) 1 patch TRANSDERM BEDTIME [facility] Multivitamins (Theragran Tab*) 1 tab PO DAILY [facility] Last Admin: 06/24/19 14:11 Dose: Not Given Nicotine (Nicotine Patch 21 Mg/24 Hr*) 1 patch TRANSDERM DAILY [facility] Last Admin: 06/24/19 11:21 Dose: Not Given Nicotine Polacrilex (Nicotine Gum*) 2 mg PO Q2H PRN PRN Reason: CRAVINGS Ondansetron HCl (Zofran Tab*) 4 mg PO Q4H PRN PRN Reason: NAUSEA/VOMITING Pharmacy Profile Note (Nicotine Patch Removal Note*) 1 note PATCH OFF 2100 [facility] Last Admin: 06/23/19 20:16 Dose: Not Given Pharmacy Profile Note (Lidocaine Patch Remove*) 1 note N/A DAILY [facility] - Discharge Plan Discharge Plan: Inpatient Hospitalization
[2019-06-24] MEDS: DULoxetine DR CAP* 30 MG CAP.DR PO SCH (16:14)
[2019-06-24] MEDS: Lidocaine PATCH 5%* 1 PATCH TRANSDERM SCH (22:01)
[2019-06-24] MEDS: Nicotine Patch Removal NOTE PATCH OFF SCH (23:41)
[2019-06-25 08:12] LABS: HDL Cholesterol 64.1 mg/dL
[2019-06-25] MEDS: Vitamin THERAPEUTIC TAB PO SCH (10:25)
[2019-06-25] MEDS: Nicotine PATCH 21 MG/24 HR* PATCH TRANSDERM SCH (10:25)
[2019-06-25] MEDS: DULoxetine DR CAP* 30 MG CAP.DR PO SCH (10:26)
[2019-06-25] MEDS: Lidocaine Patch REMOVE* 1 NOTE MISC SCH (10:26)
--- NOTE | 2019-06-25 15:45 | PN ---
Subjective - Subjective Date of Service: 06/25/19 Service Type: 75330 Hosp care 15 min low complexity Subjective: Patient reports much increased energy and felt like he had multiple pots of coffee after taking duloxetine yesterday. He did not want to take it this morning prior to meeting with machine sign writer. Patient endorses periods, without substance use, of days of increased energy, increased goal-directed activities and decreased need for sleep. He states that after these periods, he "crashes" and sleeps for 1-2 days. He reports lidocaine patch was helpful for low back pain. He declines offer of gabapentin due to his mother taking it in the past and having severe twitches. Collateral information from family denotes he has been engaging in substance use more than he discloses. Objective - General Observations Appearance: Well Groomed Stature: WNL Posture: WNL Eye Contact: Average Behavior/Activity: WNL - Interaction Observations Attitude Towards Examiner: Cooperative Stated Mood: Euthymic Affect: Bright Speech Pattern/Tone: Clear, Appropriate, Normal Volume Thought Process: Coherent Perception: WNL Thought Content: WNL Hallucination Type: Denies Delusion Type: Denies - Cognitive Function Orientation: A&O x 4 Level of Consciousness: Alert Cognition: WNL Estimated Intelligence: Normal Insight: Mostly Blames Others for Problems Judgment Within Normal Limits: No Ability to Make Reasonable Decisions: Mildly Impaired - Medication Compliance Cooperative with Inpatient Medication Regimen: Yes - Group Participation Participates in Group Activities: Yes Assessment - Assessment Merits Inpatient Hospitalization: For Immediate Safety, For Stabilization Inpatient DSM-V Dx: F34.9 Clinical Impression: 49yo wm, tenuously domiciled, unemployed who presented to the ED after intentionally ingesting tylenol and flexeril in a suicide attempt. He minimizes substance use; toxicology was positive for alcohol and cocaine. Patient merits hospitalization for immediate safety and stabilization. Plan - Plan Treatment Plan: Name: SAMI KELLER JR Birthdate: 1970 [id number] continue acute intensive psychiatric treatment. convert to voluntary status. DC duloxetine. trial quetiapine 50mg qhs. may utilize ibuprofen and lidocaine patch prn pain. continue to obtain collateral from family. discharge to include referrals for MH and SINDHU treatment. Continued Medication Management: Start Medication Medications: Current Medications Al Hydrox/Mg Hydrox/Simethicone (Maalox Plus*) 30 ml PO Q4H PRN PRN Reason: INDIGESTION Ibuprofen (Motrin Tab*) 600 mg PO Q8H PRN PRN Reason: PAIN - MILD Lidocaine (Lidoderm 5% Patch*) 1 patch TRANSDERM BEDTIME REPLACED BY [facility] Last Admin: 06/24/19 22:01 Dose: 1 patch Multivitamins (Theragran Tab*) 1 tab PO DAILY REPLACED BY [facility] Last Admin: 06/25/19 10:25 Dose: 1 tab Nicotine (Nicotine Patch 21 Mg/24 Hr*) 1 patch TRANSDERM DAILY REPLACED BY [facility] Last Admin: 06/25/19 10:25 Dose: Not Given Nicotine Polacrilex (Nicotine Gum*) 2 mg PO Q2H PRN PRN Reason: CRAVINGS Ondansetron HCl (Zofran Tab*) 4 mg PO Q4H PRN PRN Reason: NAUSEA/VOMITING Pharmacy Profile Note (Nicotine Patch Removal Note*) 1 note PATCH OFF 2100 REPLACED BY [facility] Last Admin: 06/24/19 23:41 Dose: Not Given Pharmacy Profile Note (Lidocaine Patch Remove*) 1 note N/A DAILY REPLACED BY [facility] Last Admin: 06/25/19 10:26 Dose: Not Given Quetiapine Fumarate (Seroquel Tab*) 50 mg PO BEDTIME REPLACED BY [facility] - Discharge Plan Discharge Plan: Inpatient Hospitalization
[2019-06-25] MEDS: Lidocaine PATCH 5%* 1 PATCH TRANSDERM SCH (20:13)
[2019-06-25] MEDS: Nicotine Patch Removal NOTE PATCH OFF SCH (20:16)
[2019-06-25] MEDS ORDERED: QUEtiapine TAB* 25 MG PO SCH (21:00)
[2019-06-26] MEDS: Nicotine PATCH 21 MG/24 HR* PATCH TRANSDERM SCH (08:35)
[2019-06-26] MEDS: Lidocaine Patch REMOVE* 1 NOTE MISC SCH (08:35)
[2019-06-26] MEDS: Vitamin THERAPEUTIC TAB PO SCH (08:35)
[2019-06-26 09:38] VITALS: BP 90/68
--- NOTE | 2019-06-28 13:39 | DS ---
CC: [facility]; Dr. Joseph Jain; [facility] DISCHARGE SUMMARY: DATE OF ADMISSION: 06/22/19 DATE OF DISCHARGE: 06/26/19 SUPERVISING PSYCHIATRIST: Dr. Wayne Powell. DISCHARGE DIAGNOSES: 1. Unspecified mood disorder. 2. Cocaine use disorder. 3. Alcohol use disorder. CONDITION AT THE TIME OF DISCHARGE: Improved. The patient is well related. He is euthymic with danuta ght affect. He has been participating in unit programming. He is pleasant and cooperative. He ashley es thoughts of suicide. He denies passive wish. He reports, "I will never do that again" in r egards to the suicide attempt via overdose. He has consistently minimized alcohol and substance use while here. He denies need for substance use treatment but is agreeable to referral placed to [facility]. He declined offer of medication for alcohol use disorder. The pa tient was safe on all checks and in behavioral control. He advocated for his discharge. Social Work identified multiple family members that were not able to allow him to live with them. The patient r eached out to his ex- and reported that he can stay with her temporarily until a more permanent h ousing situation is identified. He was given referral for primary care provider through [facility] and mental health services at [facility]. The patient is discharged to home. MENTAL STATUS EXAM: The patient is a 49-year-old white male who appears slightly older than stated a ge. He is well-groomed, casually dressed in his own clothing. He stands with erect posture, is coope rative and pleasant. Answers questions fully. He is alert and oriented x3. Eye contact is good. S peech is soft, articulate, and spontaneous. Concentration good. Memory 3/3. Mood is euthymic with bright affect. No abnormal psychomotor activity noted. Thought process is coherent, logical, and go al directed. Thought content is negative for SI or passive wish. He denies HI or . He ashley es auditory or visual hallucinations. There are perceptual disturbances noted. Insight and judgment are good, improved. He appears to have an average intellect and his fund of knowledge is excellent. INSTRUCTIONS GIVEN TO PATIENT: A. Medications: 1. Lidocaine patch 1 transdermal at q.h.s., remove after 12 hours. 2. Quetiapine 50 mg p.o. q.h.s. B. Diet: Regular. C. Activity: Ambulation as tolerated. Tobacco cessation was declined by the patient. There are no pending labs or diagnostic studies. D. Followup care: The patient was referred to [facility] with an intake on 06/30. He was referred to [facility] to establish primary care and has an appointment with Dr. Lewis tejada on 07/03/19. E. Substance use followup: The patient was referred to [facility] wit h an intake on 06/28/19. HOSPITAL COURSE: Part A: Reason for admission: The patient presented to the emergency department in the middle of the night, on the morning of 06/22/19. He reported ingesting about 30 to 40 tablets o f Tylenol and Flexeril around midnight. He said he thought it was the right thing to do. He reporte d he needed a nap and it seemed like the right thing to do was to ingest such amount of medication. In the ED, he denied intention to harm himself when meeting with the psychiatrist on the ICU. He francesca ntifies that he had made a suicide attempt. The patient was stabilized medically, then transferred t o the behavioral services unit. HPI: A 49-year-old gentleman with no prior history of mental health treatment, has been in and out [facility] residential and half-way for several years now and has been staying with his uncle [facility]. He was minimally cooperative with providing history and irritable with questions rega rding mental health and substance abuse. He gave enough information to understand he suffers from se jamey depression and would probably end his life if he is let go without any mental health treatment; however, he will also need assistance with his polysubstance use disorder. On today's evaluation, he reported that he has been depressed for quite a while with sadness, occasio nal crying spells, feeling helpless, worthless, and thinking about ending his life. He did not repor t any of the psychotic symptoms and was getting very upset when asked about his substance use history . 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 All of these factors stressed him out to the point that he did not see any purpose of living longer. On top of it, his only son who is 26 years old is in residential and his 24- ye ar-old daughter, who also has substance abuse problems, is in a Drug and Alcohol Rehab Program in [facility]. The patient reported desire to be admitted voluntarily in case in the future it would be able to help with custody with his grandchildren if needed. Part B: Psychiatric treatment rendered: The patient was admitted to the adult behavioral services [email or web address] on involuntary status. His code status was full. He was cooperative with the admission process with the exception of the involuntary status. He was pleasant upon approach. He reported concern th at an involuntary admission may sabotage visitation or guardianship of his grandchildren. Regarding symptoms, the patient reported severe PTSD and anxiety with racing thoughts as barriers to being func tional. He states he has poor sleep due to racing thoughts and musculoskeletal pain from work-relate d injuries. He reports, "I will try anything in regards to medications for above." He denies alcoho l withdrawal effects and states he was drinking minimally. He states he has a passive alcoholic drin liborio. In 2013, he was charged with DUI and went to [facility] in [place] and then [facility] for 7 months. We discontinued the WAM protocol as the patient was not scoring. We started duloxet ine for PTSD and musculoskeletal pain. We confirmed him to voluntary status. The patient was afforde d ibuprofen and lidocaine patch for pain. The first night of taking duloxetine, the patient reported much increased energy and it felt like he had multiple pots of coffee. The following day he did not want to take it prior to meeting with this sba underwriter. He endorses periods without substance use, of day s of increased energy, increased goal directed activities, and decreased need for sleep. He states t hat after these periods, he "crashes and sleeps for 1 to 2 days." He reports lidocaine patch was hel pful for low back pain. He declined offer of gabapentin due to his mother taking it in the past and having severe twitches. Collateral information from family denoted that he has been engaging in subs tance use more than he disclosed and also that he was voicing suicidal ideation for days to weeks vaibhav or to his over dose attempt. The patient agreed to a trial of quetiapine to assist with sleep and due to adverse reaction to dulox etine. He reported sleeping well with this including not waking up due to pain. He agreed to contin ue this medication. The patient advocated for discharge. He reported readiness to leave. He identi fied that he was able to stay with his ex- temporarily until more permanent housing options were identified. He has been speaking with [employer] [employer] in regards to slow and reentry efforts. Due to obl igation to treat in least restrictive setting, discharge was agreed upon by treatment team. JEANNIE MAGUIRE, MEG [id number]/[facility] #: [id number]
== END 2019-06-26 12:50 | disposition home or self-care (01) | DRG 812 ==
LOC: ED 01:19 → ICU 05:56 → OBSVTOIN 06-23 13:45 → BSU 06-23 15:45 → UNDODISOB 06-23 15:57
PROVIDERS: ADMIT Family Medicine; ATTEND Psychiatry & Neurology Psychiatry
PROC: HZ2ZZZZ Detoxification Services for Substance Abuse Treatment (ICD-10-PCS; principal; 2019-06-23)
DX: T39.1X2A Poisoning by 4-Aminophenol derivatives, intentional self-harm, initial encounter (principal); F34.9 Persistent mood [affective] disorder, unspecified; T48.1X2A Poisoning by skeletal muscle relaxants [neuromuscular blocking agents], intentional self-harm, initial encounter; I95.89 Other hypotension; F10.20 Alcohol dependence, uncomplicated; F14.10 Cocaine abuse, uncomplicated; F17.210 Nicotine dependence, cigarettes, uncomplicated; Y90.5 Blood alcohol level of 100-119 mg/100 ml; Y92.9 Unspecified place or not applicable; Z80.1 Family history of malignant neoplasm of trachea, bronchus and lung; Z80.51 Family history of malignant neoplasm of kidney; Z80.52 Family history of malignant neoplasm of bladder
CPT/HCPCS: 36415; 80048; 80053; 80061; 80076; 80307; 80320; 80329; 81003; 83036; 84443; 85025; 87641; 90686; 90853; 93005; 99222; 99231; 99232; 99238; 99285; A9270-GY; G0480; J0132; J2060; J7060

== ENCOUNTER 2019-06-29 21:39 | Emergency (ER) | payer MEDICAID ==
[2019-06-29] MEDS ORDERED: NS 0.9% 1000 ML** 1,000 ML IV ONE (22:25)
[2019-06-29] MEDS ORDERED: Ondansetron INJ* 2 MG/ML VIAL IV ONE (22:25)
--- NOTE | 2019-06-29 22:29 | ED ---
GI/ HPI - HPI Summary HPI Summary: 49 year old M arriving via private car to [facility] accompanied by family members complains of vomiting starting 3.5 hours ago. Patient states he threw up [address] to the ED today. No diarrhea. Patient recently admitted to ICU after overdosing on 325 mg acetaminophen x50 and Flexeril x40. Patient was admitted to [facility] and discharged on 06/26/2019. Patient has not taken any Tylenol since. Patient reports hematemesis however no e/o blood in vomit in room. Patient reports sharp/stabbing pain in LLQ while sitting in waiting room which has since resolved. No pain currently. The patient rates the pain 0/10 in severity. Symptoms aggravated by nothing. Symptoms alleviated by nothing. Medications reviewed. Allergies noted. Home Medications Medication Instructions Recorded Confirmed Type Lidocaine PATCH 5%* [Lidoderm 5% 1 patch TRANSDERM BEDTIME #30 patch 06/26/19 Rx Patch*] QUEtiapine TAB* [Seroquel 25 MG 50 mg PO BEDTIME #60 tab 06/26/19 Rx TAB*] - History of Current Complaint Chief Complaint: EDNauseaVomitDiarrh Time Seen by Provider: 06/29/19 22:25 Stated Complaint: VOMITING PER PT Hx Obtained From: Patient Onset/Duration: Started Hours Ago - 3.5, Still Present Timing: Lasting Hours - 3.5 Current Severity: None Pain Intensity: 0 Location of Pain: LLQ Pain Characteristics: Sharp, Other: - stabbing Aggravating Factor(s): Nothing Alleviating Factor(s): Nothing - Additional Pertinent History Primary Care Physician: [facility] - Allergy/Home Medications Allergies/Adverse Reactions: Allergies Allergy/AdvReac Type Severity Reaction Status Date / Time No Known Allergies Allergy Verified 06/29/19 21:42 Home Medications: Home Medications Lidocaine PATCH 5%* [Lidoderm 5% Patch*] 1 patch TRANSDERM BEDTIME #30 patch [Rx Confirmed 06/29/19] QUEtiapine TAB* [Seroquel 25 MG TAB*] 50 mg PO BEDTIME #60 tab 06/26/19 [Rx Confirmed 06/29/19] Ondansetron ODT TAB* [Zofran 4 MG Odt TAB*] 4 mg PO Q8H PRN 4 Days #12 tab.odt 06/29/19 [Rx] PMH/Surg Hx/FS Hx/Imm Hx Endocrine/Hematology History: Denies: Hx Diabetes Cardiovascular History: Denies: Hx Pacemaker/ICD Musculoskeletal History: Reports: Hx Back Problems Sensory History: Reports: Hx Contacts or Glasses - reading Denies: Hx Cataracts, Hx Hearing Aid Opthamlomology History: Reports: Hx Contacts or Glasses - reading Denies: Hx Cataracts Neurological History: Denies: Hx Headaches Psychiatric History: Reports: Hx Depression, Hx Substance Abuse - cocaine, Other Psychiatric Issues/Disorders - recovering alcoholic Denies: Hx Panic Disorder - Surgical History Surgery Procedure, Year, and Place: EAR TUBES A CHILD. HERNIA A CHILD. 03/12 RT SHOULDER ARTHROSCOPIC DECOMPRESSION Hx Anesthesia Reactions: No Infectious Disease History: No Infectious Disease History: Denies: Traveled Outside the [place] in Last 30 Days - Family History Known Family History: Negative: Cardiac Disease, Hypertension, Diabetes - Social History Alcohol Use: Daily Hx Substance Use: Yes Substance Use Type: Reports: Cocaine Hx Tobacco Use: Yes Smoking Status (MU): Heavy Every Day Tobacco Smoker Type: Cigarettes Amount Used/How Often: 1 PPD Have You Smoked in the Last Year: Yes Review of Systems Negative: Fever Positive: Abdominal Pain - LLQ, Vomiting, Other - hematemesis. Negative: Diarrhea All Other Systems Reviewed And Are Negative: Yes Physical Exam - Summary Physical Exam Summary: Constitutional: Well-developed, Well-nourished, Alert. (-) Distressed Skin: Warm, Dry HENT: Normocephalic; Atraumatic Eyes: Conjunctiva normal Neck: Musculoskeletal ROM normal neck. (-) JVD, (-) Stridor, (-) Nuchal rigidity Cardio: Rhythm regular, rate normal, Heart sounds normal; Intact distal pulses; Radial pulses are 2+ and symmetric. (-) Murmur Pulmonary/Chest wall: Effort normal. (-) Respiratory distress, (-) Wheezes, (-) Rales Abd: Soft, (-) tenderness, (-) Distension, (-) Guarding, (-) Rebound Musculoskeletal: (-) Edema Lymph: (-) Cervical adenopathy Neuro: Alert, Oriented x3 Psych: Mood and affect Normal Triage Information Reviewed: Yes Vital Signs On Initial Exam: Initial Vitals Temp Pulse Resp BP Pulse Ox 98.2 F 94 17 127/87 99 06/29/19 21:41 06/29/19 21:41 06/29/19 21:41 06/29/19 21:41 06/29/19 21:41 Vital Signs Reviewed: Yes Procedures - Sedation Patient Received Moderate/Deep Sedation with Procedure: No Diagnostics - Vital Signs Vital Signs Temp Pulse Resp BP Pulse Ox 06/29/19 21:41 98.2 F 94 17 127/87 99 - Laboratory Result Diagrams: 06/29/19 22:42 06/29/19 22:42 Lab Statement: Any lab studies that have been ordered have been reviewed, and results considered in the medical decision making process. Re-Evaluation - Re-Evaluation First Eval Re-Evaluation Time: 00:45 Change: Improved - patient able to tolerate PO per nurse. will plan for discharge with rx Zofran Second Eval Re-Evaluation Time: 00:46 Comment: patient agrees to d/c [facility] Course/Dx - Course Course Of Treatment: 49 y/o male w recent admission for tylenol OD and SI p/w acute n/v. - PE well appearing, abd soft. VSS. Given zofran and IVF. Tolerating PO. Labs w normal LFTs. Denies taking tylenol (family at bedside also deny), acetaminophen level normal. - suspect gastroenteritis. Given return precautions. - Diagnoses Provider Diagnoses: Nausea & vomiting, Dehydration Discharge ED - Sign-Out/Discharge Documenting (check all that apply): Patient Departure - Discharge Plan Condition: Stable Disposition: HOME Prescriptions: Ondansetron ODT TAB* [Zofran 4 MG Odt TAB*] 4 mg PO Q8H PRN 4 Days #12 tab.odt PRN Reason: Nausea/Vomiting Patient Education Materials: Acute Nausea and Vomiting (ED) Referrals: No Primary Care Phys,NOPCP [Primary Care Provider] - Additional Instructions: You were seen in emergency department for nausea vomiting. Please drink lots of fluids including water or Gatorade. Please return to emergency department if you have worsening pain, continued vomiting and diarrhea and unable to drink fluids, continued fevers or if you're concerned. Please take Zofran as needed every 8 hours or vomiting. If any lab studies are completed at time of discharge, you'll be called with the relevant results. Please follow up with her primary care doctor in next 1-2 days. It was a pleasure taking care of you today! - Billing Disposition and Condition Condition: STABLE Disposition: Home - Attestation Statements Document Initiated by Astridibe: Yes Documenting Scribe: Malissa Cheung Provider For Whom Georgie is Documenting (Include Credential): Alisa Diaz MD Scribe Attestation: IMalissa, scribed for Alisa Diaz MD on 06/30/19 at 0225. Scribe Documentation Reviewed: Yes Provider Attestation: The documentation as recorded by the astridibMalissa montanez accurately reflects the service I personally performed and the decisions made by me, Alisa Diaz MD Status of Scribe Document: Viewed
[2019-06-29 22:49] LABS: ABS Basophils 0.1 10^3/ul (0-0.2); ABS Eosinophils 0.1 10^3/ul (0-0.6); ABS Lymphocytes 1.3 10^3/ul (1.0-4.8); ABS Monocytes 0.4 10^3/ul (0-0.8); Hematocrit 42 % (42-52); Hemoglobin 14.9 g/dL (14.0-18.0); Lymphocyte % 14.2 %; Mean Corpuscular HGB Conc 36 g/dL (31-36); Mean Corpuscular Hemoglobin 31 pg (27-31); Mean Corpuscular Volume 88 fL (80-94); Mean Platelet Volume 8.6 fL (7.4-10.4); Nucleated Red Blood Cells % 0.1; Platelet Count 139 10^3/uL (150-450); Red Blood Count 4.76 10^6 /uL (4.18-5.48); Red Cell Distribution Width 14 % (10-15); White Blood Count 8.8 10^3/uL (3.5-10.8)
[2019-06-29] MEDS ORDERED: Lidocaine 2% VISCOUS* 15 ML UDC PO ONE (22:53)
[2019-06-29] MEDS ORDERED: Al Hydrox/Mg Hydrox/Simet LIQ* 30 ML UDC PO ONE (22:53)
[2019-06-29 23:10] LABS: ALT 18 U/L (7-52); AST 19 U/L (13-39); Albumin 4.7 g/dL (3.2-5.2); Albumin/Globulin Ratio 1.5 (1-3); Alkaline Phosphatase 109 U/L (34-104); Anion Gap 6 mmol/L (2-11); BUN/Creatinine Ratio 26.5 (8-20); Blood Urea Nitrogen 18 mg/dL (6-24); CO2 Carbon Dioxide 30 mmol/L (22-32); Calcium 9.9 mg/dL (8.6-10.3); Chloride 101 mmol/L (101-111); EGFR African American 149.4 (>60); EGFR Non-African American 123.4 (>60); Globulin 3.1 g/dL (2-4); Glucose 95 mg/dL (70-100); Potassium 3.7 mmol/L (3.5-5.0); Sodium 137 mmol/L (135-145); Total Protein 7.8 g/dL (6.4-8.9)
[2019-06-29 23:44] LABS: Acetaminophen < 15 mcg/mL
[2019-06-30 00:45] VITALS: BP 127/74
[2019-06-30] MEDS: Ondansetron ODT TAB* 4 MG SL ONE ×2 (00:52→00:53)
[2019-06-30] MEDS ORDERED: Ondansetron ODT TAB* 4 MG SL ONE (01:20)
== END 2019-06-30 00:58 | disposition home or self-care (01) ==
LOC: ED 21:39
DX: E86.0 Dehydration (principal); R11.10 Vomiting, unspecified; F17.210 Nicotine dependence, cigarettes, uncomplicated; R10.32 Left lower quadrant pain
CPT/HCPCS: 36415; 80053; 80329; 83690; 85025; 96374; 99283; A9270-GY; G0480; J2405